=== PATIENT | male | born 1995 | race Two or more races ===

== ENCOUNTER 2018-12-18 18:24 | Emergency (ER) | payer OTHER ==
[~2018-12-18] VITALS: Ht 172.7 cm; Wt 120.2 kg
[2018-12-18 23:49] VITALS: BP 143/87
[2018-12-19] MEDS ORDERED: IBUPROFEN 800 MG TAB PO ONE
[2018-12-19] MEDS ORDERED: METHOCARBAMOL 500 MG TAB PO ONE
== END 2018-12-19 00:26 | disposition home or self-care (01) ==
LOC: ER 18:29
DX: M25.532 Pain in left wrist (principal); V43.52XA Car driver injured in collision with other type car in traffic accident, initial encounter; Y93.89 Activity, other specified; Y99.8 Other external cause status; Y92.410 Unspecified street and highway as the place of occurrence of the external cause
CPT/HCPCS: 73110